=== PATIENT | female | born 1990 | race African-American/Black ===

== ENCOUNTER 2019-03-15 12:43 | Emergency (ER) | payer MEDICAID ==
[~2019-03-15] VITALS: Ht 172.7 cm; Wt 73.0 kg
[2019-03-15] MEDS ORDERED: IBUPROFEN 600MG TABLET PO STA ×2 (14:32→14:39)
[2019-03-15 18:25] VITALS: BP 115/65
== END 2019-03-15 18:27 | disposition home or self-care (01) ==
LOC: ER 13:14
DX: S92.421A Displaced fracture of distal phalanx of right great toe, initial encounter for closed fracture (principal); S16.1XXA Strain of muscle, fascia and tendon at neck level, initial encounter; Y08.89XA Assault by other specified means, initial encounter; Y93.89 Activity, other specified; Y92.89 Other specified places as the place of occurrence of the external cause; Y99.8 Other external cause status
CPT/HCPCS: 72040; 73630; 81025; 99283; Z7610